=== PATIENT | female | born 1990 | race Caucasian/White ===

== ENCOUNTER 2023-11-08 07:41 | Inpatient (IN) ==
--- NOTE | 2023-11-08 08:26 | Emergency Department Note ---
History of Present Illness General Chief complaint: Shoulder Pain Stated complaint: R SHOULDER, ELBOW PAIN, CAN'T FEEL R HAND Time Seen by Provider: 11/08/23 08:02 History of Present Illness Maximum Pain Intensity: 8 This is a 33-year-old female that presents to the emergency department via private vehicle with complaints of "right shoulder pain". The patient states that for the past 1.5 weeks she has been experiencing right shoulder pain. Specifically she notes the pain began in the right posterior shoulder just under the right scapular region. She thought perhaps it was muscle/shoulder related initially and tried rest, ice, heat, stim, stretching and working out the area with minimal relief. She notes that secondary to progression of symptoms she presented to [facility] emergency department and at that time notes that she had imaging of the shoulder performed, was medicated and initially had some relief of pain. She was prescribed methocarbamol as well as oxycodone. However, not long after returning home she noted return of symptoms and then today now notes numbness in the right hand/wrist area as well as pain from the right shoulder down into the right elbow area. Pain is present at all times and worse with certain movements. There are no alleviating factors. She denies any chest pain, shortness of breath, fevers, chills, recent illness. No history of VT or PE. She is right-hand dominant. She is otherwise healthy. She notes history of tonsillectomy, adenoidectomy, wisdom teeth extraction, ankle surgery. No known drug allergies. Per review of the records as obtained from the [facility], patient was seen yesterday, medicated with IM Toradol, IM Dilaudid, and also had right shoulder x-ray. Right shoulder x-ray report as available by radiologist reveals no acute findings. Home Medications Medication Instructions Recorded Confirmed Type ibuprofen 1 tab PO DIRECTED PRN Pain 11/08/23 11/08/23 History methocarbamol 750 mg tablet 750 mg PO DIRECTED PRN Other 11/08/23 11/08/23 History naproxen 1 tab PO DIRECTED PRN Pain 11/08/23 11/08/23 History oxycodone 5 mg tablet 5 mg PO Q6H PRN Pain 11/08/23 11/08/23 History Past Med/Surg History Problem List (Updated 11/08/23 @ 17:08 by Irwin Alicea PA-C) Abnormal MRI, cervical spine (Acute) Cervical radiculopathy (Acute) HNP (herniated nucleus pulposus), cervical Surgical History (Updated 11/08/23 @ 14:02 by Dalila Bhardwaj PA-C) History of tonsillectomy History of removal of ovarian cyst History of ankle surgery Family History (Updated 11/08/23 @ 14:24 by Dalila Bhardwaj PA-C) Denies family history of Diabetes Heart disease Kidney disease Cancer Hypertension Social History Smoking Status: Never smoker Do You Dip or Chew Tobacco: No; Hx Alcohol Use: Yes Alcohol type: hard liquor Alcohol Intake Frequency: 2-3 x/Week Hx Substance Use: No Preferred Language: Greek Communication Ability: Effective 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: No Beliefs That Will Affect Care: None Current Living Situation: Family Other Information That Helps Us Care for You: No Feels Safe at Home: Yes Safety Concerns: Feels Safe At This Time Review of Systems A total of 10 systems reviewed and were otherwise negative Physical Exam Vital Signs Vital Signs - 24 hr 11/08/23 07:49 11/08/23 09:09 11/08/23 09:20 Temperature 36.9 C Temperature Source Temporal Artery Scan Pulse Rate 101 H 75 72 Pulse Rhythm Regular Respiratory Rate 18 16 Respiratory Effort / Characteristics Non-Labored Spontaneous Respiratory Depth Normal Respiratory Pattern Regular Blood Pressure 154/114 H Blood Pressure Mean 127 Blood Pressure Position Sitting Pulse Oximetry 96 96 Oxygen Delivery Method Room Air Room Air Sepsis Recent Fever Within 48 Hours No Sepsis New/Unexplained Change in Mental Status N/A Sepsis Action Taken by Nursing No Action Required 11/08/23 09:30 11/08/23 11:23 Temperature Temperature Source Pulse Rate 75 85 Pulse Rhythm Respiratory Rate 24 14 Respiratory Effort / Characteristics Respiratory Depth Respiratory Pattern Blood Pressure 127/92 123/79 Blood Pressure Mean 105 93 Blood Pressure Position Pulse Oximetry 98 Oxygen Delivery Method Room Air Sepsis Recent Fever Within 48 Hours Sepsis New/Unexplained Change in Mental Status Sepsis Action Taken by Nursing VITAL SIGNS - Vital signs and nursing notes were reviewed. Tachycardic, hypertensive, otherwise stable GENERAL - 33-year-old female appearing her stated age who is in no acute distress. Communicates well with provider and answers questions appropriately. SKIN - Without rashes. HEAD - NC/AT. EYES - PERRL with EOMI bilaterally. Sclera anicteric. EARS - No deformities of external structures noted on gross examination bilaterally. NOSE - Midline and without cyanosis. Septum midline without deviation or septal hematoma noted. MOUTH/OROPHARYNX - Without perioral cyanosis. Buccal mucosa pink and moist and without leukoplakia. Tongue midline with equal elevation of palate bilaterally. No tonsillar hypertrophy, erythema, or exudates noted. Good dentition noted. NECK - Neck with FROM. Supple to palpation. No C spine TTP noted. No nuchal rigidity. LUNGS - Chest wall symmetric without accessory muscle use, intercostals retractions, or central cyanosis. Normal vesicular breath sounds CTA B/L. No wheezes, rales, or rhonchi appreciated. CARDIAC - RRR ABDOMEN - Abdominal contour normal without pulsations or visible masses. BS normoactive all four quadrants. No tenderness, palpable masses, hepatosplenomegaly, or ascites noted. EXTREMITIES - No clubbing or peripheral cyanosis. Right hand shoe maker strength diminished slightly compared to the left. Empty can test negative. Nearly full active ROM of R shoulder, R elbow and R wrist. NEUROLOGIC - Cranial nerves II through XII grossly intact. PSYCH -alert, oriented and pleasant on exam Course Administered Medications Acetaminophen (Acetaminophen 500 Mg Tab) 1,000 mg PO Q8H RODOLFO Stop: 12/08/23 14:59 Last Admin: 11/08/23 15:30 Dose: 1,000 mg Documented By: DI Hydromorphone HCl (Hydromorphone Inj 0.5 Mg/0.5 Ml Syr) 0.5 mg IV Q6H PRN PRN Reason: Severe Pain (Scale 7, 8, 9,10) Stop: 11/22/23 14:31 Last Admin: 11/08/23 16:32 Dose: 0.5 mg Documented By: DI Methocarbamol (Methocarbamol 750 Mg Tablet) 1,500 mg PO TID PRN PRN Reason: Other Stop: 12/08/23 15:05 Last Admin: 11/08/23 16:55 Dose: 1,500 mg Documented By: DI Oxycodone HCl (Oxycodone Hcl Ir 5 Mg Tab (Immediate Release)) 5 mg PO Q6H PRN PRN Reason: Moderate Pain (Scale 4, 5, 6) Stop: 11/22/23 14:31 Last Admin: 11/08/23 15:31 Dose: 5 mg Documented By: DI Discontinued Medications Dexamethasone Sodium Phosphate (DexamethasonePf 10 Mg/Ml Vial) 10 mg IV NOW ONE Stop: 11/08/23 10:56 Last Admin: 11/08/23 11:20 Dose: 10 mg Documented By: SCOTT Hydromorphone HCl (Hydromorphone Inj 0.5 Mg/0.5 Ml Syr) 0.5 mg IV NOW STA Stop: 11/08/23 08:39 Last Admin: 11/08/23 09:06 Dose: 0.5 mg Documented By: SCOTT Hydromorphone HCl (Hydromorphone Inj 0.5 Mg/0.5 Ml Syr) 0.5 mg IV NOW STA Stop: 11/08/23 10:56 Last Admin: 11/08/23 11:20 Dose: 0.5 mg Documented By: SCOTT Hydromorphone HCl (Hydromorphone Inj 0.5 Mg/0.5 Ml Syr) 0.5 mg IV NOW STA Stop: 11/08/23 13:26 Last Admin: 11/08/23 13:45 Dose: 0.5 mg Documented By: SCOTT Ketorolac Tromethamine (Ketorolac Tromethamine 15 Mg/Ml Vial) 10 mg IV NOW ONE Stop: 11/08/23 09:31 Last Admin: 11/08/23 09:39 Dose: 10 mg Documented By: SCOTT Lidocaine (Lidocaine 5% 1 Patch) 1 patch TD NOW STA Stop: 11/08/23 08:39 Last Admin: 11/08/23 09:06 Dose: 1 patch Documented By: SCOTT Ondansetron HCl (Ondansetron Inj 2 Mg/Ml 2 Ml Vial) 4 mg IV NOW STA Stop: 11/08/23 08:39 Last Admin: 11/08/23 09:06 Dose: 4 mg Documented By: SCOTT Medical Decision Making Laboratory Data 11/08/23 08:48 11/08/23 08:48 Lab Results 11/08/23 Range/Units 08:48 WBC 11.10 H (4.8-10.8) K/ul RBC 4.87 (4.20-5.40) M/uL Hgb 14.9 (12.0-16.0) g/dl Hct 45.3 (37.0-47.0) % MCV 93.0 (80.0-100.0) fL MCH 30.6 (25.0-34.0) pg MCHC 32.9 (32.0-36.0) g/dL RDW Std Deviation 40.9 (36.4-46.3) fL RDW Coeff of Shaista 12.0 (11.5-14.5) % Plt Count 346 (130-400) K/uL MPV 9.8 (9.4-12.4) fL Immature Gran % (Auto) 0.6 % Neut % (Auto) 85.0 % Lymph % (Auto) 10.5 % [place] % (Auto) 3.3 % Eos % (Auto) 0.2 % Baso % (Auto) 0.4 % Neut # (Auto) 9.43 H (1.40-6.50) K/uL Lymph # (Auto) 1.17 L (1.20-3.40) K/uL [place] # (Auto) 0.37 (0.11-0.59) K/uL Eos # (Auto) 0.02 (0.00-0.50) K/uL Baso # (Auto) 0.04 (0.00-0.20) K/uL Immature Gran # (Auto) 0.07 (0.01-0.20) K/uL Sodium 137 (136-145) mmol/L Potassium 4.0 (3.5-5.1) mmol/L Chloride 105 (98-107) mmol/L Carbon Dioxide 26 (21-32) mmol/L Anion Gap 6 (3-11) BUN 15 (6-23) mg/dl Creatinine 1.01 (0.6-1.2) mg/dl Est Cr Clr Drug Dosing 77.2 ml/min Est GFR ( Amer) 84.1 ml/min Est GFR (Non-Af Amer) 72.6 ml/min BUN/Creatinine Ratio 14.9 (10-20) Glucose 100 H (70-99(Fasting)) mg/dl Calcium 9.3 (8.6-10.3) mg/dl Total Bilirubin 1.1 H (0.2-1.0) mg/dl AST 38 (13-39) U/L ALT 26 (7-52) U/L Alkaline Phosphatase 39 (34-104) U/L Total Protein 7.3 (6.0-8.3) gm/dl Albumin 4.5 (3.4-5.0) gm/dl Globulin 2.8 (2.5-4.0) gm/dl Albumin/Globulin Ratio 1.6 (0.9-2) HCG, Qual Negative (Negative) Imaging Data Radiologist's Impression: Cervical Spine MRI 11/08/23 08:45 CERVICAL SPINE MRI HISTORY: R upper extremity pain/numbness in R hand/wrist TECHNIQUE: Multiplanar multisequence MRI of the cervical spine was performed without the use of contrast. COMPARISON STUDY: None. FINDINGS: Straightening of the cervical spine. No fracture or subluxation. Prevertebral soft tissues and the C1-C2 interval are intact. The visualized posterior fossa is unremarkable. Mild facet degenerative changes within the cervical spine. There is mild disc space narrowing at C5-C6 and C6-C7. The cervical spinal cord demonstrates a normal signal intensity. C2-C3: No significant central canal or neural foraminal narrowing. C3-C4: Broad-based posterior disc osteophyte complex resulting in near complete effacement of the anterior thecal sac without cord deformity. No significant central canal narrowing. There is moderate right and mild left neural foraminal narrowing due to the uncovertebral and facet hypertrophy. C4-C5: Small broad-based posterior disc bulge with a focal central annular tear. No significant central canal or neural foraminal narrowing. C5-C6: There is a broad-based central/left paracentral disc protrusion measuring 3 mm in AP diameter. This abuts but does not significantly deform the anterior cord. This also abuts the exiting left nerve root at this level. However, no significant central canal or neural foraminal narrowing. C6-C7: Broad-based posterior disc osteophyte complex with a right paracentral disc extrusion measuring approximately 7 x 4 mm. This extends into the right neural foramen and compresses the exiting right nerve roots at this level resulting in severe right-sided neural foraminal narrowing. There is also mild central canal narrowing. No significant left-sided neural foraminal narrowing. C7-T1: No significant central canal or neural foraminal narrowing. IMPRESSION: 1. A 7 x 4 mm right paracentral disc extrusion at C6-C7 which extends into the right neural foramen and results in compression of the exiting right nerve root at this level. 2. There is a broad-based central/left paracentral disc protrusion at C5-C6 which abuts the exiting left nerve root at this level. However, no significant central canal or neural foraminal narrowing. 3. Additional degenerative changes as described above. 4. Straightening of the cervical spine. ACT 112: Negative or not required by law. Electronically signed by: Bethel Schmidt M.D. 11/08/2023 10:40 AM MDM Narrative Patient was seen and evaluated as above in room C02. Review was performed of triage nursing notes and vital signs. After obtaining a thorough history and physical examination the above work up was performed. Patient presents to us today for evaluation of right upper extremity pain, this started about 1.5 weeks ago in the right shoulder area, mainly posterior now as of this morning radiating distal into the right elbow region with associated numbness/tingling in the right hand and right wrist. Sanforizer strength of the right hand is diminished compared to the left. The right upper extremity is appropriately warm and well-perfused. Were normal right radial pulse. Capillary refill of all digits of the right hand within normal limits. There are no rashes. No open wounds. Patient denies any infectious symptoms. No chest pain or shortness of breath. Options of care were discussed with the patient. IV access was established. Labs were drawn. She was medicated with IV analgesia, lidocaine patch, and given Zofran intravenously for nausea. I did review the patient's ED visit from yesterday as available from [facility]. Here, labs reveal mild leukocytosis 11.10 without sign of infection clinically. No anemia. No emergent metabolic disturbance. Mild elevation of T. bili at 1.1. hCG negative. Noting the patient's progressive right upper extremity symptoms now with right upper extremity weakness and numbness in the right hand/wrist region we will proceed with MRI of the C-spine as this is felt to be the etiology of her symptoms at this time. MRI results as above. I did review the imaging. There is a 7 x 4 mm right paracentral disc extrusion at C6-C7 which extends into the right neural foramen and results in compression of the exiting right nerve root at this level and this is felt to be the cause of the patient's symptoms clinically. I did discuss this with the on-call orthopedic appointment specialist, Dr. Bowman. Will proceed with admission to the hospital. Please refer to further documentation regarding her stay. GCS: 15 In the evaluation and treatment of this patient the following differential diagnoses were entertained: Cervical radiculopathy, rotator cuff injury, vertebral artery dissection, strain, sprain, infection, among others Impression & Plan Cervical radiculopathy, Abnormal MRI, cervical spine Discharge Plan Visit Data Chief Complaint: Shoulder Pain Stated Complaint: R SHOULDER, ELBOW PAIN, CAN'T FEEL R HAND ED Provider: Alex Jacobs ED Midlevel Provider: Irwin Alicea Discharge Problem: Cervical radiculopathy, Abnormal MRI, cervical spine Patient Disposition: Admitted As Inpatient Condition: Good Discharge Instructions Interventions: ED Discharge Assessment Last Done: 11/08/23 14:53
[2023-11-08] MEDS: LIDOCAINE 5% 1 PATCH TD STA (09:06)
[2023-11-08] MEDS: ONDANSETRON INJ 2 MG/ML 2 ML VIAL IV STA (09:06)
[2023-11-08] MEDS: HYDROmorphone INJ 0.5 MG/0.5 ML SYR IV STA ×3 (09:06→13:45)
[2023-11-08 09:11] LABS: Basophils # (auto) 0.04 K/uL (0.00-0.20); Basophils % (auto) 0.4 %; Eosinophils # (auto) 0.02 K/uL (0.00-0.50); Eosinophils % (auto) 0.2 %; Hematocrit (blood only) 45.3 % (37.0-47.0); Hemoglobin 14.9 g/dl (12.0-16.0); Immature Granulocytes # (auto) 0.07 K/uL (0.01-0.20); Immature Granulocytes % (auto) 0.6 %; Lymphocytes # (auto) 1.17 K/uL (1.20-3.40); Lymphocytes % (auto) 10.5 %; Mean Corpuscular Hemoglobin 30.6 pg (25.0-34.0); Mean Corpuscular Hgb Conc 32.9 g/dL (32.0-36.0); Mean Platelet Volume 9.8 fL (9.4-12.4); Monocytes # (auto) 0.37 K/uL (0.11-0.59); Monocytes % (auto) 3.3 %; Neutrophils # (auto) 9.43 K/uL (1.40-6.50); Platelet Count 346 K/uL (130-400); RDW Standard Deviation 40.9 fL (36.4-46.3); Red Blood Count 4.87 M/uL (4.20-5.40)
[2023-11-08 09:17] LABS: Pregnancy Test, Serum Negative (Negative)
[2023-11-08 09:19] LABS: Albumin Globulin Ratio 1.6 (0.9-2); Albumin Level 4.5 gm/dl (3.4-5.0); BUN Creatinine Ratio 14.9 (10-20); Bilirubin,Total 1.1 mg/dl (0.2-1.0); Calcium 9.3 mg/dl (8.6-10.3); Creatinine Clr Calc Pharmacy 77.2 ml/min; Est GFR (African American) 84.1 ml/min; Est GFR (Non-African American) 72.6 ml/min; Globulin 2.8 gm/dl (2.5-4.0); Total Protein 7.3 gm/dl (6.0-8.3)
[2023-11-08] MEDS: KETOROLAC TROMETHAMINE 15 MG/ML VIAL IV ONE ×2 (09:39→18:15)
--- NOTE | 2023-11-08 10:41 | Magnetic Resonance Report ---
CERVICAL SPINE MRI HISTORY: R upper extremity pain/numbness in R hand/wrist TECHNIQUE: Multiplanar multisequence MRI of the cervical spine was performed without the use of contr ast. COMPARISON STUDY: None. FINDINGS: Straightening of the cervical spine. No fracture or subluxation. Prevertebral soft tissues and the C1-C2 interval are intact. The visualized posterior fossa is unremarkable. Mild facet degener ative changes within the cervical spine. There is mild disc space narrowing at C5-C6 and C6-C7. The c ervical spinal cord demonstrates a normal signal intensity. C2-C3: No significant central canal or neural foraminal narrowing. C3-C4: Broad-based posterior disc osteophyte complex resulting in near complete effacement of the ant erior thecal sac without cord deformity. No significant central canal narrowing. There is moderate ri ght and mild left neural foraminal narrowing due to the uncovertebral and facet hypertrophy. C4-C5: Small broad-based posterior disc bulge with a focal central annular tear. No significant centr al canal or neural foraminal narrowing. C5-C6: There is a broad-based central/left paracentral disc protrusion measuring 3 mm in AP diameter. This abuts but does not significantly deform the anterior cord. This also abuts the exiting left ner ve root at this level. However, no significant central canal or neural foraminal narrowing. C6-C7: Broad-based posterior disc osteophyte complex with a right paracentral disc extrusion measurin g approximately 7 x 4 mm. This extends into the right neural foramen and compresses the exiting right nerve roots at this level resulting in severe right-sided neural foraminal narrowing. There is also mild central canal narrowing. No significant left-sided neural foraminal narrowing. C7-T1: No significant central canal or neural foraminal narrowing. IMPRESSION: 1. A 7 x 4 mm right paracentral disc extrusion at C6-C7 which extends into the right neural foramen a nd results in compression of the exiting right nerve root at this level. 2. There is a broad-based central/left paracentral disc protrusion at C5-C6 which abuts the exiting l eft nerve root at this level. However, no significant central canal or neural foraminal narrowing. 3. Additional degenerative changes as described above. 4. Straightening of the cervical spine. ACT 112: Negative or not required by law. Electronically signed by: Bethle Schmidt M.D. 11/08/2023 10:40 AM
[2023-11-08] MEDS: dexAMETHasone**PF** 10 MG/ML VIAL IV ONE (11:20)
--- NOTE | 2023-11-08 13:47 | History & Physical Report ---
Date of Service November 08, 2023 Assessment & Plan (1) Cervical radiculopathy: (2) HNP (herniated nucleus pulposus), cervical: Plan: This is a 33yo F with a PMH of R shoulder pain x 10 days that has now migrated to arm and was found to have right paracentral disc extrusion at C6-C7. Cervical spine MRI with a 7 x 4 mm right paracentral disc extrusion at C6-C7 which extends into the right neural foramen and results in compression of the exiting right nerve root at this level. There is a broad-based central/left paracentral disc protrusion at C5-C6 which abuts the exiting left nerve root at this level. However, no significant central canal or neural foraminal narrowing. Dr. Bowman consulted ED provider discussed with ortho spine, who will evaluate patient for pain control vs OR - patient prefers to proceed with surgery Pro-op EKG and CXR added Continue pain control with scheduled tylenol, lidocaine patch, oxycodone 5 Q6h PRN, methocarbamol TID PRN Given 10mg IV Decadron in ED NPO @ [place] Nausea 2/2 pain above PRN antiemetics, optimize pain control Starting with clears, can advanced as tolerated DVT Ppx: SCDs Code status: FULL PCP: Maria C Dispo: admitted to med/surg Patient seen in collaboration with Dr. Castillo. Please see addendum. I spent a total of 60 minutes coordinating, documenting, and providing care for this patient excluding time spent in the performance of separately billed services. History of Present Illness Chief Complaint: shoulder and neck pain Primary Care Provider: NO PCP This is a 33yo F with a PMH of R shoulder pain x 10 days. Tried ice/ heat stretching with minimal relief. Was seen yesterday at [facility] for this pain and shoulder XR did not reveal any acute findings and was discharged home. Since then, pain of R scapular region is migrating down arm, now with associated paresthesias in R hand prompting presentation to [facility] ED today. Describes pain as "feeling like my bones are shattering". Has been taking oxycodone and methocarbamol overnight without much relief. No neck pain or difficultly with range of motion at neck. Associated nausea and vomiting 2/2 pain, last vomiting episode was earlier this morning. No F/C, headache, CP, SOB, abdominal pain, dysuria, diarrhea or constipation. Denies any other known PMH. Not on home medications besides pain regimen over the past week. Allergies Allergy/AdvReac Type Severity Reaction Status Date / Time contact metal agent Allergy Rash Verified 11/08/23 22:46 Home Medications Medication Instructions Recorded Confirmed Type ibuprofen 1 tab PO DIRECTED PRN Pain 11/08/23 11/08/23 History methocarbamol 750 mg tablet 750 mg PO DIRECTED PRN Other 11/08/23 11/08/23 History naproxen 1 tab PO DIRECTED PRN Pain 11/08/23 11/08/23 History oxycodone 5 mg tablet 5 mg PO Q6H PRN Pain 11/08/23 11/08/23 History Past Med/Surg History Problem List (Updated 11/08/23 @ 17:08 by Irwin Alicea PA-C) Abnormal MRI, cervical spine (Acute) Cervical radiculopathy (Acute) HNP (herniated nucleus pulposus), cervical Surgical History (Updated 11/08/23 @ 14:02 by Dalila Bhardwaj PA-C) History of tonsillectomy History of removal of ovarian cyst History of ankle surgery Family History (Updated 11/08/23 @ 14:24 by Dalila Bhardwaj PA-C) Denies family history of Diabetes Heart disease Kidney disease Cancer Hypertension Social History Smoking Status: Never smoker Do You Dip or Chew Tobacco: No; Hx Alcohol Use: Yes Alcohol type: hard liquor Alcohol Intake Frequency: 2-3 x/Week Hx Substance Use: No Preferred Language: Niuean Communication Ability: Effective Assistant Manager Required: No Beliefs That Will Affect Care: None Current Living Situation: Family Other Information That Helps Us Care for You: No Feels Safe at Home: Yes Safety Concerns: Feels Safe At This Time Review of Systems Review of Systems: At least ten systems reviewed and negative except as noted in the HPI. Physical Exam Physical Exam: General Appearance: WD/WN, vitals as above, NAD, sitting up in bed, appears to be in pain, conversing without issue Head: normocephalic, atraumatic Eyes: normal inspection, PERRL, conjunctivae normal, anicteric sclerae ENT: external ear and nose normal, oropharynx normal Neck: normal visual inspection, trachea midline, normal ROM Respiratory: normal respiratory effort, lungs clear to auscultation, no wheeze, rales, rhonchi. No accessory muscle use Cardiovascular: regular rate, rhythm, no murmur, normal peripheral pulses, no BLE edema. Vessels: no JVD Chest: normal inspection of chest Abdomen/GI: normal bowel sounds, soft, nontender, no hepatosplenomegaly Extremities/Musculoskeletal: Pain in R shoulder extending to arm, cigarette machine filler strength intact, no sensory deficit noted in RUE. No cyanosis or clubbing, extremities motor strength 5/5 Neurologic: PERRL, EOMI, accommodation nl, no face palsy, no dysarthria, CN's II-XI intact bilaterally and moves all extremities Psychiatric: A+Ox3 Skin: no rashes, normal color, warm/dry Results & Data Results & Data Vital Signs (Past 12 Hours) Vital Signs Temp Pulse Resp BP Pulse Ox O2 Del Method 11/08/23 11:23 85 14 123/79 98 Room Air 11/08/23 09:30 75 24 127/92 11/08/23 09:20 72 16 96 Room Air 11/08/23 09:09 75 11/08/23 07:49 36.9 C 101 H 18 154/114 H 96 Room Air Laboratory Results Short CBC 11/08/23 Range/Units 08:48 WBC 11.10 H (4.8-10.8) K/ul Hgb 14.9 (12.0-16.0) g/dl Hct 45.3 (37.0-47.0) % Plt Count 346 (130-400) K/uL BMP 11/08/23 08:48 Sodium 137 Potassium 4.0 Chloride 105 Carbon Dioxide 26 BUN 15 Creatinine 1.01 Glucose 100 H Calcium 9.3 Liver Function 11/08/23 Range/Units 08:48 Total Bilirubin 1.1 H (0.2-1.0) mg/dl AST 38 (13-39) U/L ALT 26 (7-52) U/L Alkaline Phosphatase 39 (34-104) U/L Albumin 4.5 (3.4-5.0) gm/dl Diagnostic Findings Cervical Spine MRI 11/08/23 08:45 CERVICAL SPINE MRI HISTORY: R upper extremity pain/numbness in R hand/wrist TECHNIQUE: Multiplanar multisequence MRI of the cervical spine was performed without the use of contrast. COMPARISON STUDY: None. FINDINGS: Straightening of the cervical spine. No fracture or subluxation. Prevertebral soft tissues and the C1-C2 interval are intact. The visualized posterior fossa is unremarkable. Mild facet degenerative changes within the cervical spine. There is mild disc space narrowing at C5-C6 and C6-C7. The cervical spinal cord demonstrates a normal signal intensity. C2-C3: No significant central canal or neural foraminal narrowing. C3-C4: Broad-based posterior disc osteophyte complex resulting in near complete effacement of the anterior thecal sac without cord deformity. No significant central canal narrowing. There is moderate right and mild left neural foraminal narrowing due to the uncovertebral and facet hypertrophy. C4-C5: Small broad-based posterior disc bulge with a focal central annular tear. No significant central canal or neural foraminal narrowing. C5-C6: There is a broad-based central/left paracentral disc protrusion measuring 3 mm in AP diameter. This abuts but does not significantly deform the anterior cord. This also abuts the exiting left nerve root at this level. However, no significant central canal or neural foraminal narrowing. C6-C7: Broad-based posterior disc osteophyte complex with a right paracentral disc extrusion measuring approximately 7 x 4 mm. This extends into the right neural foramen and compresses the exiting right nerve roots at this level resulting in severe right-sided neural foraminal narrowing. There is also mild central canal narrowing. No significant left-sided neural foraminal narrowing. C7-T1: No significant central canal or neural foraminal narrowing. IMPRESSION: 1. A 7 x 4 mm right paracentral disc extrusion at C6-C7 which extends into the right neural foramen and results in compression of the exiting right nerve root at this level. 2. There is a broad-based central/left paracentral disc protrusion at C5-C6 which abuts the exiting left nerve root at this level. However, no significant central canal or neural foraminal narrowing. 3. Additional degenerative changes as described above. 4. Straightening of the cervical spine. ACT 112: Negative or not required by law. Electronically signed by: Bethel Schmidt M.D. 11/08/2023 10:40 AM ECG Additional Comments: admission EKG pending Code Status & VTE Plan VTE Prophylaxis Plan VTE Prophylaxis will be ordered: Yes Supervising Physician Co-Signing Physician Notes Pt was seen and examined by myself, Lenore Castillo MD on the day of service. Care was coordinated with Dalila Bhardwaj PA-C. 33yoF presenting with neck and right shoulder pain in the setting of a C6-C7 disc extrusion. On exam, in mild distress. Pain control, ortho spine consult. Otherwise as above. I spent a total [id number] coordinating, documenting, and providing care for this patient excluding time spent in the performance of separately billed services
--- NOTE | 2023-11-08 13:49 | Consultation ---
Date of Consultation November 08, 2023 Assessment & Plan (1) HNP (herniated nucleus pulposus), cervical: Patient is being admitted to the hospitalist team service. I have discussed options including observation with pain control, pain management consult for steroid injection versus ultimately surgical intervention. Surgery would require anterior cervical discectomy and fusion at the C6-7 level. Risk benefits pros cons alternatives iin detail. At this point in time she wants to proceed with surgical intervention. Will make her n.p.o. after midnight. Start with steroids as well as IV pain medication for better pain control. All questions have been answered in detail. History of Present Illness History of Present Illness Is a pleasant 33-year-old female who presents to the emergency room with complaints of cervicalgia extending into the right upper extremity. Symptoms started a week and a half ago with right scapular pain. It did not improve. It then radiated to her right shoulder. Pain was severe she went to the [facility] emergency room yesterday where they did a shoulder workup and sent her home with oxycodone and methocarbamol. This morning she woke up and symptoms have now radiated down the right upper extremity mostly along the elbow into all 5 fingers which are numb. She is right-hand dominant. Left upper extremity is asymptomatic. All positions reproduce it. Nothing is palliative. At home she has been applying ice and heat and taking NSAIDs without relief. Denies bowel or bladder dysfunction. Denies loss of balance. Allergies Allergy/AdvReac Type Severity Reaction Status Date / Time contact metal agent Allergy Rash Verified 11/09/23 09:08 Home Medications Medication Instructions Recorded Confirmed Type ibuprofen 1 tab PO DIRECTED PRN Pain 11/08/23 11/08/23 History methocarbamol 750 mg tablet 750 mg PO DIRECTED PRN Other 11/08/23 11/08/23 History naproxen 1 tab PO DIRECTED PRN Pain 11/08/23 11/08/23 History oxycodone 5 mg tablet 5 mg PO Q6H PRN Pain 11/08/23 11/08/23 History oxycodone 5 mg tablet 5 mg PO Q6H PRN pain #20 tabs 11/09/23 Rx tramadol 50 mg tablet 50 mg PO Q6H PRN pain, moderate 11/09/23 Rx #20 tabs Patient History Surgical History History of tonsillectomy History of removal of ovarian cyst History of ankle surgery Family History Denies family history of Diabetes Heart disease Kidney disease Cancer Hypertension Social History Smoking Status: Never smoker Do You Dip or Chew Tobacco: No; Hx Alcohol Use: Yes Alcohol type: hard liquor Alcohol Intake Frequency: 2-3 x/Week Hx Substance Use: No Preferred Language: Vietnamese Communication Ability: Effective Ironworker Required: No Beliefs That Will Affect Care: None Current Living Situation: Family Other Information That Helps Us Care for You: No Feels Safe at Home: Yes Safety Concerns: Feels Safe At This Time Review of Systems Review of Systems: All systems reviewed & are unremarkable except as noted in HPI & below Physical Exam Physical Exam: She is seen in the emergency room in conjunction with her mother. She is alert and oriented x 3 quite tearful but cooperative She has a 4+/5 right tricep otherwise 5/5 bilateral finger intrinsics, wrist extensors, wrist flexors, biceps and deltoid. Positive Spurling's to the right, negative to the left. Negative Lhermittes No evidence of upper motor neuron signs Results & Data Vital Signs (Past 12 Hours) Vital Signs Temp Pulse Resp BP Pulse Ox O2 Del Method 11/08/23 11:23 85 14 123/79 98 Room Air 11/08/23 09:30 75 24 127/92 11/08/23 09:20 72 16 96 Room Air 11/08/23 09:09 75 11/08/23 07:49 36.9 C 101 H 18 154/114 H 96 Room Air Diagnostic Findings [place] [phone] Magnetic Resonance Report Patient: GUSTAVO CROW Admit Date: 11/08/23 MR#: [id number] Address1: [address] [place] [address] Acct ID:[id number] Address2: Date: 1990 [facility] Zip: [place] [address] Age: 33 Location: ED Sex: F Room/Bed: Att Phy: Diagnosis: R SHOULDER, ELBOW PAIN, CAN'T FEEL R HAND Dahlia Phy: PCP,NO Service Date: 11/08/23 [facility] Phy: Interpreting Phy: Bethel Schmidt MDAdmit Phy: Ordering Phy: Irwin Alicea PA-C cc: ~ CERVICAL SPINE MRI HISTORY: R upper extremity pain/numbness in R hand/wrist TECHNIQUE: Multiplanar multisequence MRI of the cervical spine was performed without the use of contrast. COMPARISON STUDY: None. FINDINGS: Straightening of the cervical spine. No fracture or subluxation. Prevertebral soft tissues and the C1-C2 interval are intact. The visualized posterior fossa is unremarkable. Mild facet degenerative changes within the cervical spine. There is mild disc space narrowing at C5-C6 and C6-C7. The cervical spinal cord demonstrates a normal signal intensity. C2-C3: No significant central canal or neural foraminal narrowing. C3-C4: Broad-based posterior disc osteophyte complex resulting in near complete effacement of the anterior thecal sac without cord deformity. No significant central canal narrowing. There is moderate right and mild left neural foraminal narrowing due to the uncovertebral and facet hypertrophy. C4-C5: Small broad-based posterior disc bulge with a focal central annular tear. No significant central canal or neural foraminal narrowing. C5-C6: There is a broad-based central/left paracentral disc protrusion measuring 3 mm in AP diameter. This abuts but does not significantly deform the anterior cord. This also abuts the exiting left nerve root at this level. However, no significant central canal or neural foraminal narrowing. C6-C7: Broad-based posterior disc osteophyte complex with a right paracentral disc extrusion measuring approximately 7 x 4 mm. This extends into the right neural foramen and compresses the exiting right nerve roots at this level resulting in severe right-sided neural foraminal narrowing. There is also mild central canal narrowing. No significant left-sided neural foraminal narrowing. C7-T1: No significant central canal or neural foraminal narrowing. IMPRESSION: 1. A 7 x 4 mm right paracentral disc extrusion at C6-C7 which extends into the right neural foramen and results in compression of the exiting right nerve root at this level. 2. There is a broad-based central/left paracentral disc protrusion at C5-C6 which abuts the exiting left nerve root at this level. However, no significant central canal or neural foraminal narrowing. 3. Additional degenerative changes as described above. 4. Straightening of the cervical spine. ACT 112: Negative or not required by law. Electronically signed by: Bethel Schmidt M.D. 11/08/2023 10:40 AM Dictated: 11/08/23 1033 Transcribed: 11/08/23 1033
[2023-11-08] MEDS ORDERED: POLYETHYLENE (MIRALAX) 17 GM PACK PO PRN (15:06)
--- NOTE | 2023-11-08 15:10 | XRay Report ---
XR chest 1V portable HISTORY: 33 years-old Female admission preoperative exam COMPARISON: None TECHNIQUE: AP view of the chest FINDINGS: Cardiac silhouette is normal. Lungs are clear. No pneumothorax or pleural effusion. The bones appear intact. IMPRESSION: No acute process. ACT 112: Negative or not required by law. The above report was generated using voice recognition software. It may contain grammatical, syntax o r spelling errors. Electronically signed by: Emre Velazquez M.D. 11/08/2023 3:08 PM
[2023-11-08] MEDS: ACETAMINOPHEN 500 MG TAB PO SCH (15:30)
[2023-11-08] MEDS: oxyCODONE HCL IR 5 MG TAB (IMMEDIATE RELEASE) PO PRN (15:31)
[2023-11-08] MEDS: HYDROmorphone INJ 0.5 MG/0.5 ML SYR IV PRN (16:32)
[2023-11-08] MEDS: METHOCARBAMOL 750 MG TABLET PO PRN (16:55)
[2023-11-08] MEDS: ONDANSETRON INJ 2 MG/ML 2 ML VIAL IV PRN (22:08)
[2023-11-08] MEDS ORDERED: Patient's ALLERGY Info needs ENTERED STA (22:17)
[2023-11-08] MEDS: LORazepam 0.5 MG TAB PO STA (22:20)
--- NOTE | 2023-11-09 07:12 | Electrocardiogram Report ---
Test Reason : Blood Pressure : / mmHG Vent. Rate : 082 BPM Atrial Rate : 082 BPM P-R Int : 134 ms QRS Dur : 068 ms QT Int : 374 ms P-R-T Axes : 035 -09 010 degrees QTc Int : 436 ms Normal sinus rhythm with sinus arrhythmia Normal ECG No previous ECGs available Confirmed by Danish Caro ([id number]) on 11/09/2023 7:11:44 AM Referred By: REFERRED SELF Confirmed By:Danish Caro
[2023-11-09] MEDS ORDERED: ROCURONIUM BROMIDE 10 MG/ML 5 ML VIAL IV ONE (08:30)
[2023-11-09] MEDS ORDERED: PROPOFOL IV EMULSION 10 MG/ML 20 ML VIAL IV ONE (08:30)
[2023-11-09] MEDS ORDERED: GLYCOPYRROLATE 0.2 MG/ML VIAL ONE (08:30)
[2023-11-09] MEDS ORDERED: fentaNYL citrate PF 100 MCG/2 ML VIAL ONE ×2 (08:30→10:26)
[2023-11-09] MEDS ORDERED: DEXAMETHASONE SOD INJ 4 MG/ML VIAL ONE (08:30)
[2023-11-09] MEDS ORDERED: ONDANSETRON INJ 2 MG/ML 2 ML VIAL ONE (08:30)
[2023-11-09] MEDS ORDERED: LIDOCAINE 2% 2 ML VIAL/AMP(20MG/ML) INFIL ONE (08:30)
[2023-11-09] MEDS ORDERED: MIDAZOLAM HCL 1 MG/ML 2ML VIAL ONE (08:31)
[2023-11-09] MEDS ORDERED: SUGAMMADEX SODIUM 200 MG/2 ML VIAL IV ONE (08:32)
[2023-11-09 08:46] LABS: Hematocrit (blood only) 38.9 % (37.0-47.0); Hemoglobin 13.3 g/dl (12.0-16.0); Mean Corpuscular Hemoglobin 31.1 pg (25.0-34.0); Mean Corpuscular Hgb Conc 34.2 g/dL (32.0-36.0); Mean Corpuscular Volume 91.1 fL (80.0-100.0); Mean Platelet Volume 10.1 fL (9.4-12.4); Platelet Count 338 K/uL (130-400); RDW Coefficient of Variation 11.9 % (11.5-14.5); RDW Standard Deviation 39.8 fL (36.4-46.3); Red Blood Count 4.27 M/uL (4.20-5.40); White Blood Count 12.03 K/ul (4.8-10.8)
[2023-11-09] MEDS: LORazepam 0.5 MG TAB PO STA (08:53)
[2023-11-09 09:09] LABS: BUN Creatinine Ratio 14.9 (10-20); Creatinine Clr Calc Pharmacy 82.9 ml/min; Est GFR (African American) 91.7 ml/min; Est GFR (Non-African American) 79.2 ml/min; Potassium 3.8 mmol/L (3.5-5.1)
--- NOTE | 2023-11-09 09:15 | History & Physical Bridge Note ---
Date of Service November 09, 2023 History & Physical Bridge Note I have examined the patient, reviewed the History & Physical and in the interval since the performance of the History & Physical I have noted the following changes of clinical significance: no changes noted Patient demonstrates with significant progressive neurologic deficit with 3/5 right triceps. She is requiring significant doses of narcotic and antiemetic medications to control her pain. She has been vomiting for the past 2-1/2 to 3 days secondary to pain. In light of her progressive neurologic Kraus requirement for narcotic medications and findings on MRI I am recommending emergent anterior cervical discectomy and fusion C6-C7.
[2023-11-09] MEDS: LACTATED RINGER'S 1,000 ML IV SCH ×2 (09:24→12:27)
[2023-11-09] MEDS ORDERED: ePHEDrine sulfate 50 MG/ML AMP IV PRN (09:25)
[2023-11-09] MEDS ORDERED: ATROPINE SULFATE 0.1 MG/ML 10ML SYR IV PRN (09:25)
[2023-11-09] MEDS ORDERED: ONDANSETRON INJ 2 MG/ML 2 ML VIAL IV PRN ×2 (09:25→12:18)
--- NOTE | 2023-11-09 09:25 | Anesthesiology Consultation ---
Date of Service November 09, 2023 Assessment & Plan (1) Encounter for pre-operative examination: Chart Review Chart Review: Acceptable Risk for Surgery and Patient NOT seen in Pre Admission Testing Consults Requested none History Surgery Operation Date: 11/09/23 12:55 Proposed Procedures p C6-C7 Anterior Cervical Disc Fusion - José Miguel Bowman DO Height/Weight Height: 5 ft 2 in Weight: 80.6 kg Allergies Allergy/AdvReac Type Severity Reaction Status Date / Time contact metal agent Allergy Rash Verified 11/09/23 09:08 Medications Home Medications Medication Instructions Recorded Confirmed Last Taken ibuprofen 1 tab PO DIRECTED PRN Pain 11/08/23 11/08/23 Unknown methocarbamol 750 mg tablet 750 mg PO DIRECTED PRN Other 11/08/23 11/08/23 Unknown naproxen 1 tab PO DIRECTED PRN Pain 11/08/23 11/08/23 Unknown oxycodone 5 mg tablet 5 mg PO Q6H PRN Pain 11/08/23 11/08/23 Unknown Active Medications Generic Name Dose Route Start Last Admin Trade Name Nicanorq PRN Reason Stop Dose Admin Acetaminophen 1,000 mg 11/08/23 15:00 11/09/23 06:04 Acetaminophen 500 Mg Tab PO 12/08/23 14:59 1,000 mg Q8H RODOLFO Administration Hydromorphone HCl 0.5 mg 11/08/23 14:32 11/09/23 06:05 Hydromorphone Inj 0.5 Mg/0.5 Ml Syr IV 11/22/23 14:31 0.5 mg Q6H PRN Administration Severe Pain (Scale 7, 8, 9,10) Lactated Ringer's 1,000 mls @ 15 mls/hr 11/09/23 09:30 11/09/23 09:24 Lr IV 12/09/23 09:29 15 mls/hr .Q24H RODOLFO Administration Methocarbamol 1,500 mg 11/08/23 15:06 11/09/23 04:10 Methocarbamol 750 Mg Tablet PO 12/08/23 15:05 1,500 mg TID PRN Administration muscle spasm Ondansetron HCl 4 mg 11/08/23 15:06 11/08/23 22:08 Ondansetron Inj 2 Mg/Ml 2 Ml Vial IV 12/08/23 15:05 4 mg Q6H PRN Administration Nausea Oxycodone HCl 5 mg 11/08/23 14:32 11/08/23 22:05 Oxycodone Hcl Ir 5 Mg Tab (Immediate Release) PO 11/22/23 14:31 5 mg Q6H PRN Administration Moderate Pain (Scale 4, 5, 6) NPO Date Last Intake of Fluids: 11/08/23 Time Last Intake of Fluids: 18:00 Date Last Intake of Solids: 11/08/23 Time Last Intake of Solids: 18:00 Past Family History Family History Denies family history of Diabetes Heart disease Kidney disease Cancer Hypertension Past Surgical History Surgical History History of tonsillectomy History of removal of ovarian cyst History of ankle surgery Social History Smoking Status: Never smoker Do You Dip or Chew Tobacco: No Hx Alcohol Use: Yes Alcohol type: hard liquor alcohol intake frequency: a few times a week Hx Substance Use: No Physical Exam Vital Signs Last Vital Signs Temp 98.4 F 11/09/23 09:08 Pulse 80 11/09/23 09:08 Resp 18 11/09/23 09:08 BP 127/87 11/09/23 09:08 Pulse Ox 100 11/09/23 09:08 O2 Del Method Room Air 11/09/23 09:08 Testing Laboratory Results 11/09/23 07:35 11/09/23 07:35 Electrocardiogram Date: 11/08/23 Findings: + NSR @
[2023-11-09] MEDS: ceFAZolin 2000MG 2,000 MG/15 ML SYR IV ONE (10:12)
[2023-11-09] MEDS: BUPIVACAINE/EPINEPHRINE 0.25% 1:200,000 30 ML VIAL ONE (10:24)
[2023-11-09] MEDS: ceFAZolin 330 MG/ML 1 GM VIAL ONE (10:24)
[2023-11-09] MEDS: FLOSEAL HEMOSTATIC MATRIX 10ML TOP ONE (10:25)
--- NOTE | 2023-11-09 11:02 | Operative Report ---
Post Operative Report Pre & Post Diagnosis Operation Date: 11/09/23 12:55 Pre-Op Diagnosis: Cervical disc herniation C6-C7 with neurologic deficit Post-Op Diagnosis: same I identified the patient and participated in the time-out.: Yes Procedure Operation Date: 11/09/23 12:55 Actual Procedures 1. Anterior cervical discectomy with bilateral foraminotomies and excision of herniated disc fragment C6-C7. #2 anterior cervical arthrodesis C6-C7. #3 placement of Spira 7 mm cage filled with os design bone graft C6-C7. #4 application of K2 M plate and screws across C6-C7. Surgeon José Miguel Bowman, [employer] Head Kelly Gonsalez Estimated Blood Loss 10 Findings Consistent with Post-Op Diagnosis Specimens None Indications This is a 33-year-old female presents the emergency room yesterday. She presents with significant strength deficits with sensory loss to the right upper extremity. Her symptoms are severe in nature requiring IV narcotics and antiemetics to control her pain. In light of her presentation and neurologic decline and recommending emergent anterior cervical discectomy and fusion C6-C7 to avoid a permanent neurologic deficit. Description of Procedure Patient was met with identified informed consent obtained. Patient was then taken to the operative suite underwent intubation placed in a supine position on the Jass table with head Hodge head order. All bony prominences well- padded eyes inspected to ensure no external pressure placed upon the. This p oint the anterior cervical spine was prepped and draped normal sterile fashion. With the assistance of fluoroscopy identified the C6-C7 disc space and a transverse incision was placed along the right anterior aspect of the cervical spine overlying his region. Blunt dissection with the assistance of bipolar electrocautery was then performed down to and exposing the anterior cervical spine at C6-C7. Self-retaining retractors placed. Then performed a complete discectomy of C6-C7 out to the uncovertebral joints bilaterally. Boulevard distracting pins were utilized to assist in visualization. Removed all posterior annular fibers in the longitudinal ligament. Massive disc herniation was noted in the right neuroforamen and removed in its entirety. The endplates were then burred to subcortically bone and a 7 mm Spira cage filled with os design bone graft tapped in position. Distracting apparatus was removed and a K2 M plate and screws applied with the assistance of fluoroscopy. The incision was then copiously irrigated explored to ensure no damage to surrounding structures remaining bleeding. 10 round ROBIN drain inserted. The incision was then closed with 2 Vicryl in the fascia and 4 Monocryl for final closure. Steri-Strips sterile dressing placed. Patient waken taken PACU stable condition. Please note spinal cord monitoring was utilized at the procedure no changes noted. Lastly Kelly Gonsalez was present out the entire surgery involved the patient positioning complex portion of the surgery and final skin closure. I attest to the content of the Intraoperative Record and any orders documented therein. Any exceptions are noted below.
--- NOTE | 2023-11-09 11:33 | Fluoroscopy Report ---
FL cervical 2-3V CLINICAL HISTORY: C6-C7 ACDF COMPARISON STUDY: None. FLUOROSCOPY TIME: 17 seconds FLUOROSCOPY IMAGES: 3 Ka,r: 1.6 mGy FINDINGS: Anterior cervical discectomy and fusion at C6-C7. The hardware appears intact. Partial visu alization of an endotracheal tube and surgical drain. IMPRESSION: Fluoroscopic assistance as above. ACT 112: Negative or not required by law. Electronically signed by: Bethel Schmidt M.D. 11/09/2023 11:31 AM
[2023-11-09] MEDS: fentaNYL citrate PF 100 MCG/2 ML VIAL IV PRN (11:37)
--- NOTE | 2023-11-09 11:39 | Anesthesiology Progress Note ---
Date of Service November 09, 2023 Anesthesia Post Procedure Vital Signs Vital Signs: Temp Pulse Pulse Resp BP BP Pulse Ox 11/09/23 11:30 87 19 130/90 95 11/09/23 11:20 89 16 132/88 100 11/09/23 11:10 71 12 111/69 98 11/09/23 11:03 98.8 F 85 12 106/70 97 11/09/23 09:08 98.4 F 80 18 127/87 100 11/09/23 07:06 97.9 F 72 16 114/74 96 11/08/23 22:09 98.1 F 70 16 134/88 96 11/08/23 15:07 97.9 F 84 18 119/87 96 O2 Del Method O2 Flow Rate 11/09/23 11:30 Room Air 11/09/23 11:20 Oxymask 13 11/09/23 11:10 Oxymask 11/09/23 11:03 Oxymask 11/09/23 09:08 Room Air 11/09/23 07:06 Room Air 11/08/23 22:09 Room Air 11/08/23 15:07 Room Air Pain Intensity Right Shoulder: Pain Intensity: 3 Neck: Pain Intensity: 2 Transfer of Care Handoff Completed per policy Notes Mental Status: alert / awake / arousable and participated in evaluation Patient Amnestic to Procedure: Yes Nausea / Vomiting: adequately controlled Pain: adequately controlled Airway Patency, RR, SpO2: stable & adequate BP & HR: stable & adequate Hydration State: stable & adequate Anesthetic Complications: no major complications apparent and Pt Satisfied with anesthetic care
[2023-11-09] MEDS ORDERED: bisacodyL 10 MG SUPP PR PRN (12:18)
[2023-11-09] MEDS ORDERED: FAMOTIDINE 20 MG TAB PO PRN (12:18)
[2023-11-09] MEDS ORDERED: MAGNESIUM HYDROXIDE SUSP 30 ML UDC PO PRN (12:18)
[2023-11-09] MEDS ORDERED: PROMETHAZINE HCL 12.5 MG in SODIUM CHLORIDE 0.9% 50 ML IV PRN (12:18)
[2023-11-09] MEDS ORDERED: HYDROmorphone INJ 0.5 MG/0.5 ML SYR IV PRN (12:18)
[2023-11-09] MEDS ORDERED: traMADol HCL 50 MG TABLET PO PRN (12:18)
[2023-11-09] MEDS ORDERED: dexAMETHasone 8 MG in SYRINGE 0 ML IV PRN (12:18)
[2023-11-09] MEDS ORDERED: METOCLOPRAMIDE HCL INJ 5 MG/ML 2 ML VIAL IV PRN (12:18)
[2023-11-09] MEDS ORDERED: ONDANSETRON 4 MG OD TAB PO PRN (12:18)
[2023-11-09] MEDS ORDERED: DO NOT ADMINISTER PNEUMOCOCCAL VACCINE PRN (12:18)
[2023-11-09] MEDS ORDERED: DO NOT ADMINISTER FLU VACCINE PRN (12:18)
[2023-11-09] MEDS ORDERED: diphenhydrAMINE Capsule 25 MG CAP PO PRN (12:18)
[2023-11-09] MEDS ORDERED: NALOXONE HCL 0.4 MG/1 ML VIAL/CARP IV PRN (12:18)
[2023-11-09] MEDS ORDERED: LORazepam 0.5 MG TAB PO PRN (12:18)
[2023-11-09] MEDS ORDERED: ALUMINUM/MAGNESIUM SUSP 30 ML UDC PO PRN (12:18)
[2023-11-09] MEDS ORDERED: RACEPINEPHRINE 2.25% NEBU SOLN 0.5 ML VIAL INH PRN (12:18)
[2023-11-09] MEDS ORDERED: SOD PHOSPHATE/SOD BIPHOSPHATE ENEMA 132 ML BTL PR PRN (12:18)
--- NOTE | 2023-11-09 12:38 | Hospitalist Progress Note ---
Date of Service November 09, 2023 Assessment & Plan (1) Cervical radiculopathy: (2) HNP (herniated nucleus pulposus), cervical: Plan 33 year old female with history of right shoulder pain x 10 days that migrated to arm and was found to have right paracentral disc extrusion at C6-C7. Cervical spine MRI showed with a 7 x 4 mm right paracentral disc extrusion at C6-C7 which extends into the right neural foramen and results in compression of the exiting right nerve root at this level. There is a broad-based central/left paracentral disc protrusion at C5-C6 which abuts the exiting left nerve root at this level. However, no significant central canal or neural foraminal narrowing. Planned for cervical ACDF with Dr Bowman today. Cervical radiculopathy/HNP- MRI finding as above. plan for C6-[address] Bowman today. Further management per Dr Bowman. Anxiety- ativan prn. DVT ppx- per ortho Dispo- OR today. Will discuss about transferring care to ortho team. Time spent- approx 25 mins Admission and Anticipated Discharge Date Admission Date: November 08, 2023 Subjective Patient was seen and examined at bedside. States she is feeling anxious about the surgery and would like an ativan that helped her yesterday. Other symptoms are stable. No new issues. Review of Systems Review of Systems: All systems reviewed & are unremarkable except as noted in Subjective Physical Exam Physical Exam: General: Lying comfortably in bed, not in distress, on room air HEENT: EOMI, SHIVA, MMM Chest: Clear breath sounds bilaterally, no wheezes or crackles CVS: Regular rate and rhythm, normal heart sounds, no murmur Abdomen: Soft, non tender, not distended, normal bowel sounds Neuro: Awake, alert, oriented, conversing well, non focal Extremities: No cyanosis, clubbing or edema Results & Data Results & Data Vital Signs (Past 12 Hours) Vital Signs Temp Pulse Pulse Resp BP BP Pulse Ox 11/09/23 12:19 36.9 C 78 16 118/79 95 11/09/23 12:10 36.8 C 73 14 117/8 L 95 11/09/23 12:00 81 18 121/85 96 11/09/23 11:50 76 16 108/81 96 11/09/23 11:40 66 13 128/97 93 11/09/23 11:30 87 19 130/90 95 11/09/23 11:20 89 16 132/88 100 11/09/23 11:10 71 12 111/69 98 11/09/23 11:03 37.1 C 85 12 106/70 97 11/09/23 09:08 36.9 C 80 18 127/87 100 11/09/23 07:06 36.6 C 72 16 114/74 96 O2 Del Method O2 Flow Rate 11/09/23 12:19 Nasal Cannula 2 11/09/23 12:10 Nasal Cannula 2 11/09/23 12:00 Nasal Cannula 2 11/09/23 11:50 Nasal Cannula 2 11/09/23 11:40 Room Air 11/09/23 11:30 Room Air 11/09/23 11:20 Oxymask 13 11/09/23 11:10 Oxymask 13 11/09/23 11:03 Oxymask 13 11/09/23 09:08 Room Air 11/09/23 07:06 Room Air Laboratory Results Short CBC 11/09/23 Range/Units 07:35 WBC 12.03 H (4.8-10.8) K/ul Hgb 13.3 (12.0-16.0) g/dl Hct 38.9 (37.0-47.0) % Plt Count 338 (130-400) K/uL BMP 11/09/23 07:35 Sodium 138 Potassium 3.8 Chloride 106 Carbon Dioxide 25 BUN 14 Creatinine 0.94 Glucose 95 Calcium 9.0
[2023-11-09] MEDS: HYDROmorphone INJ 1 MG/ML SYRINGE IV PRN (12:42)
[2023-11-09] MEDS: dexAMETHasone 6 MG in SYRINGE 0 ML IV SCH (13:01)
[2023-11-09] MEDS: LORazepam 0.5 MG in SYRINGE 0.25 ML IV PRN (13:27)
[2023-11-09] MEDS: ACETAMINOPHEN 1,000 MG/100 ML VIAL IV PRN (14:31)
[2023-11-09] MEDS: hydrOXYzine HCl 25 MG TAB PO PRN (17:17)
[2023-11-09] MEDS: ceFAZolin 2000MG 2,000 MG/15 ML SYR IV SCH (17:17)
[2023-11-09] MEDS: oxyCODONE HCL IR 5 MG TAB (IMMEDIATE RELEASE) PO PRN (17:17)
[2023-11-09] MEDS: DOCUSATE SODIUM/SENNA 50/8.6MG TAB PO SCH (19:25)
[2023-11-09] MEDS: ACETAMINOPHEN 500 MG TAB PO PRN (22:28)
[2023-11-10] MEDS: POLYETHYLENE (MIRALAX) 17 GM PACK PO SCH (05:04)
[2023-11-10 07:33] LABS: Basophils # (auto) 0.01 K/uL (0.00-0.20); Basophils % (auto) 0.1 %; Eosinophils # (auto) 0.02 K/uL (0.00-0.50); Eosinophils % (auto) 0.2 %; Hematocrit (blood only) 37.8 % (37.0-47.0); Hemoglobin 12.7 g/dl (12.0-16.0); Immature Granulocytes # (auto) 0.07 K/uL (0.01-0.20); Immature Granulocytes % (auto) 0.6 %; Lymphocytes # (auto) 1.12 K/uL (1.20-3.40); Lymphocytes % (auto) 9.9 %; Mean Corpuscular Hemoglobin 31.8 pg (25.0-34.0); Mean Corpuscular Hgb Conc 33.6 g/dL (32.0-36.0); Mean Corpuscular Volume 94.5 fL (80.0-100.0); Mean Platelet Volume 9.9 fL (9.4-12.4); Monocytes # (auto) 0.36 K/uL (0.11-0.59); Monocytes % (auto) 3.2 %; Neutrophils # (auto) 9.79 K/uL (1.40-6.50); Platelet Count 309 K/uL (130-400); RDW Coefficient of Variation 12.2 % (11.5-14.5); RDW Standard Deviation 42.4 fL (36.4-46.3); White Blood Count 11.37 K/ul (4.8-10.8)
[2023-11-10 07:49] LABS: BUN Creatinine Ratio 10.9 (10-20); Calcium 8.9 mg/dl (8.6-10.3); Creatinine Clr Calc Pharmacy 84.7 ml/min; Est GFR (African American) 94.2 ml/min; Est GFR (Non-African American) 81.2 ml/min; Potassium 4.1 mmol/L (3.5-5.1)
--- NOTE | 2023-11-10 09:34 | Discharge Summary ---
Date of Service November 10, 2023 Admission HPI Per Admitting Provider This is a 33yo F with a PMH of R shoulder pain x 10 days. Tried ice/ heat stretching with minimal relief. Was seen yesterday at [facility] for this pain and shoulder XR did not reveal any acute findings and was discharged home. Since then, pain of R scapular region is migrating down arm, now with associated paresthesias in R hand prompting presentation to [facility] ED today. Describes pain as "feeling like my bones are shattering". Has been taking oxycodone and methocarbamol overnight without much relief. No neck pain or difficultly with range of motion at neck. Associated nausea and vomiting 2/2 pain, last vomiting episode was earlier this morning. No F/C, headache, CP, SOB, abdominal pain, dysuria, diarrhea or constipation. Denies any other known PMH. Not on home medications besides pain regimen over the past week. 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 Discharge Data Allergies Allergy/AdvReac Type Severity Reaction Status Date / Time contact metal agent Allergy Rash Verified 11/09/23 09:08 Consultations 11/08/23 13:17 ED Decision to Admit Stat 11/08/23 13:42 Consult Orthopedic Surgery Routine Procedures Performed Operation Date: 11/09/23 12:55 Actual Procedures p C6-C7 Anterior Cervical Discectomy and Fusion, Spinal Cord Monitoring(Not Applicable) - José Miguel Bowman, Ordered Studies 11/08/23 08:45 MR cervical spine wo con Stat 11/09/23 [place] cervical 2-3V Routine Hospital Course (1) Cervical radiculopathy: Patient was admitted with a severe radiculopathy and progressive neurologic deficit. She underwent emergent anterior cervical discectomy and fusion of the neck. She tolerated this well. Postoperatively his arm symptoms markedly improved. Strength improved. Sensory still diminished. Swallowing well. No hoarseness. ROBIN drain decreasing probably. Subsidy discharged home. Discharge orders instructions from the chart for further review. Total Time Total Time Spent Total Time Spent (In Minutes): 20 minutes Discharge Plan Discharge Items Patient Disposition: Home - Self-Care Reason For Visit: CERVICAL RADOCILOPATHY Discharge Diagnosis: Cervical disc herniation with radiculopathy Condition on Discharge: Good Activity: As commented below Non-emergency contact: Primary Care Provider Call non-emergency contact if: you have any medication questions Follow-up/Referrals: PCP,NO [Primary Care Provider] - Diet: Regular Addtl Attending Provider Instructions: ACTIVITY RECOMMENDATIONS: SELF CARE INSTRUCTIONS AFTER CERVICAL FUSIONS 1. No smoking. Smoking drastically decreases the chance of a solid fusion. 2. No bending, lifting more than 5 pounds, or twisting (roll like a log when turning in bed). 3. You may shower 3 days after surgery. Thoroughly dry wound. Do not soak in the tub. 4. Cervical collar: Must be worn at all times including sleeping. You may remove the brace only to bath, eat and if you are sitting in a recliner. 5. Please walk as much as you can for exercise. Gradually increase the distance that you walk as your endurance increases. SPECIAL CARE INSTRUCTIONS: VERY IMPORTANT TO READ AND REVIEW A. Do not take any anti-inflammatory medications (i.e. Indocin, Advil, Aspirin, Naprosyn, Aleve, Motrin, etc.) as these may inhibit the chance of a solid fusion. Tylenol is okay to take. B. Your surgical incision has been closed with a cosmetic suture under the skin that will dissolve in about 6 weeks. In 14 days, you can use a pair of clean scissors and cut the suture that is left outside of the skin at the ends of your incision. C. Complications are uncommon, but please contact us if you have any signs or symptoms of: 1. wound infection (fever higher than 102.5 degrees F, redness, separation of wound, drainage, or increasing pain from the incision) 2. blood clots in legs (pain, swelling, redness and warmth in legs) 3. urinary tract infection (fever higher than 102.5 degrees, burning upon urination or increased frequency of urination) 4. nerve problems (inability to walk on your toes or heels, numbness, loss of bowel or bladder control) 5. any other symptoms that concern you. D. Please call the office at if you have any concerns or questions about your operation or recovery. MANAGING PAIN AFTER SPINAL SURGERY 1. Narcotic medication is intended for short-term use and will be provided for surgical pain. Surgical pain usually lasts for a period of 4-6 weeks. Narcotic medication includes Percocet, Vicodin, Darvocet, Tylenol #3 or Lortab. 2. Longer-term pain is more appropriately treated with non-narcotic medication such as Tylenol ES. 3. Muscle spasm is not appropriately treated with narcotics. Muscle relaxers such as Soma, Flexeril or Skelaxin can be used along with Tylenol ES. 4. Remember that we all live with some "aches and pains". This is not unusual or uncommon after an injury or as we get older. 5. We will provide appropriate medication within the normal guidelines of their prescribed use. We will also be very cautious and aware of potential abuse and extended duration of patients' medication needs. 6. Please allow 2-3 days to process refills. Prescriptions will not be mailed but must be picked up at the office. FOLLOW UP VISIT: Keep your scheduled follow-up appointment. Any questions, please call the office at . Pending Studies at Discharge: No Stand-Alone Forms: My [facility] [employer], Smoking Cessation Medications and DC Order Prescriptions: New tramadol 50 mg tablet 50 mg PO Q6H PRN (Reason: pain, moderate) Qty: 20 0RF oxycodone 5 mg tablet 5 mg PO Q6H PRN (Reason: pain) Qty: 20 0RF Continued methocarbamol 750 mg tablet 750 mg PO DIRECTED PRN (Reason: Other) Rx Instructions: 2 tabs PO TID PRN for muscle spasms oxycodone 5 mg tablet 5 mg PO Q6H PRN (Reason: Pain) Discontinued ibuprofen 1 tab PO DIRECTED PRN (Reason: Pain) Rx Instructions: otc, as directed naproxen 1 tab PO DIRECTED PRN (Reason: Pain) Discharge Orders: Discharge Order (Routine); Ordered 11/10/23 Ordered By: José Miguel Bowman Admission Data Admit Date/Time: 11/08/23 13:42 Attending Provider: José Miguel Bowman Admit Provider: Lenore Castillo Primary Care Provider: PCP,NO Other Providers: Lenore Castillo; Jeff Bautista
--- NOTE | 2023-11-10 12:10 | Hospitalist Progress Note ---
Date of Service November 10, 2023 Assessment & Plan (1) Cervical radiculopathy: (2) HNP (herniated nucleus pulposus), cervical: Plan 33 year old female with history of right shoulder pain x 10 days that migrated to arm and was found to have right paracentral disc extrusion at C6-C7. Cervical spine MRI showed with a 7 x 4 mm right paracentral disc extrusion at C6-C7 which extends into the right neural foramen and results in compression of the exiting right nerve root at this level. There is a broad-based central/left paracentral disc protrusion at C5-C6 which abuts the exiting left nerve root at this level. However, no significant central canal or neural foraminal narrowing. Status post cervical ACDF with Dr Bowman yesterday. Post operative course was unremarkable. Cervical radiculopathy/HNP- MRI finding as above. s/p C6-[address] Bowman y . Plan for discharge home today per primary team. DVT ppx- per ortho Dispo- per primary team. stable Time spent- approx 25 mins Admission and Anticipated Discharge Date Admission Date: November 08, 2023 Subjective Patient was seen and examined at bedside. She feels fine. Pain is improved. Still with some numbness. Tolerating diet well. States she is getting discharged today. Review of Systems Review of Systems: All systems reviewed & are unremarkable except as noted in Subjective Physical Exam Physical Exam: General: Lying comfortably in bed, not in distress, on room air HEENT: On neck collar, MIGUEL, MMM Chest: Clear breath sounds bilaterally, no wheezes or crackles CVS: Regular rate and rhythm, normal heart sounds, no murmur Abdomen: Soft, non tender, not distended, normal bowel sounds Neuro: Awake, alert, oriented, conversing well, non focal Extremities: No edema Results & Data Results & Data Vital Signs (Past 12 Hours) Vital Signs Temp Pulse Pulse Resp BP BP Pulse Ox 11/10/23 11:27 36.7 C 75 17 116/81 93 11/10/23 09:25 36.8 C 89 17 113/75 94 11/10/23 07:41 75 18 92 11/10/23 07:21 36.7 C 78 17 121/80 93 11/10/23 05:00 36.7 C 71 16 103/68 94 11/10/23 04:00 61 18 93 11/10/23 02:59 36.7 C 82 16 107/71 96 11/10/23 01:05 36.8 C 74 16 113/77 96 O2 Del Method O2 Flow Rate 11/10/23 11:27 Room Air 11/10/23 09:25 Room Air 11/10/23 07:41 Room Air 11/10/23 07:21 Room Air 11/10/23 05:00 Room Air 11/10/23 04:00 Nasal Cannula 1 11/10/23 02:59 Nasal Cannula 2 11/10/23 01:05 Nasal Cannula 2 Laboratory Results Short CBC 11/10/23 Range/Units 06:54 WBC 11.37 H (4.8-10.8) K/ul Hgb 12.7 (12.0-16.0) g/dl Hct 37.8 (37.0-47.0) % Plt Count 309 (130-400) K/uL BMP 11/10/23 06:54 Sodium 138 Potassium 4.1 Chloride 105 Carbon Dioxide 27 BUN 10 Creatinine 0.92 Glucose 132 H Calcium 8.9
== END 2023-11-10 12:32 | disposition home or self-care (01) | DRG 473 ==
LOC: ED 07:41 → SUATTDRO 13:42 → 3E 13:42